=== PATIENT | male | born 1985 | race Caucasian/White ===

== ENCOUNTER 2018-03-14 15:44 | Emergency (ER) | payer SELFPAY, OTHER ==
[2018-03-14] MEDS: IBUPROFEN 600 MG TAB PO (16:04)
== END 2018-03-14 16:40 | disposition left against medical advice (07) ==
LOC: FTE 15:44
DX: M25.561 Pain in right knee (principal)
CPT/HCPCS: 73562; 99283-25

== ENCOUNTER 2018-03-14 20:56 | Emergency (ER) | payer SELFPAY ==
[2018-03-14] MEDS: HYDROCODONE/APAP (10/325) TAB PO (23:01)
== END 2018-03-15 00:19 | disposition home or self-care (01) ==
LOC: FTE 03-15 00:19
DX: M25.561 Pain in right knee (principal)
CPT/HCPCS: 99283